=== PATIENT | female | born 1990 | race Caucasian/White ===

== ENCOUNTER 2018-03-09 12:06 | Emergency (ER) | payer MEDICAID ==
[~2018-03-09] VITALS: Ht 154.9 cm; Wt 69.9 kg
[2018-03-09 12:09] VITALS: BP 104/53; Ht 154.9 cm; Wt 69.9 kg
== END 2018-03-09 12:53 | disposition home or self-care (01) ==
LOC: ED 12:06
DX: N39.0 Urinary tract infection, site not specified (principal)